=== PATIENT | male | born 1940 | race Caucasian/White ===

== ENCOUNTER 2017-04-17 16:07 | Inpatient (IN) | payer MEDICARE, OTHER ==
[~2017-04-17] VITALS: Ht 171.4 cm; Wt 68.5 kg
[~2017-04-17 16:07] MED LIST: FLAGYL500 MG PO
[2017-04-17 16:57] LABS: HEMOGLOBIN 11.3 gm/dl (14.0-17.5); RED BLOOD COUNT 4.21 M/UL (4.20-5.50); WHITE BLOOD COUNT 13.2 K/UL (4.5-11.0)
[2017-04-17 17:17] LABS: BUN/CREATININE RATIO 16 (0-10)
[2017-04-17] MEDS ORDERED: SIMVASTATIN10 MG PO (22:42)
[2017-04-17] MEDS ORDERED: DILANTIN 100 M100 MG PO (22:42)
[2017-04-17] MEDS ORDERED: OTC SLEEP AID PO (22:42)
[2017-04-18 03:19] LABS: HEMOGLOBIN 7.6 gm/dl (14.0-17.5)
[2017-04-18 15:36] LABS: HEMOGLOBIN 10.5 gm/dl (14.0-17.5)
[2017-04-19 06:20] LABS: HEMOGLOBIN 13.8 gm/dl (14.0-17.5); RED BLOOD COUNT 4.88 M/UL (4.20-5.50)
[2017-04-19 06:40] LABS: BUN/CREATININE RATIO 10 (0-10)
[2017-04-19] MEDS ORDERED: TYLENOL 325MG325 MG PO (10:21)
== END 2017-04-19 08:02 | disposition home or self-care (01) | DRG 378 ==
LOC: ER1 16:07 → ZEROF 19:07 → M/S 19:07
PROVIDERS: Emergency Medicine; Family Medicine; Internal Medicine Gastroenterology; ADMIT Family Medicine
PROC: 0DJD8ZZ Inspection of Lower Intestinal Tract, Via Natural or Artificial Opening Endoscopic (ICD-10-PCS; 2017-04-18)
PROC: 30233N1 Transfusion of Nonautologous Red Blood Cells into Peripheral Vein, Percutaneous Approach (ICD-10-PCS; 2017-04-18)
PROC: 30233N1 Transfusion of Nonautologous Red Blood Cells into Peripheral Vein, Percutaneous Approach (ICD-10-PCS; 2017-04-18)
PROC: 0DBK8ZX Excision of Ascending Colon, Via Natural or Artificial Opening Endoscopic, Diagnostic (ICD-10-PCS; principal; 2017-04-19 09:00)
DX: K57.31 Diverticulosis of large intestine without perforation or abscess with bleeding (principal); D62 Acute posthemorrhagic anemia; D12.2 Benign neoplasm of ascending colon; K64.8 Other hemorrhoids; G40.909 Epilepsy, unspecified, not intractable, without status epilepticus; E78.5 Hyperlipidemia, unspecified; K59.09 Other constipation; M95.2 Other acquired deformity of head; R51 Headache; G89.29 Other chronic pain; M54.9 Dorsalgia, unspecified; Z86.73 Personal history of transient ischemic attack (TIA), and cerebral infarction without residual deficits; Z85.46 Personal history of malignant neoplasm of prostate; Z92.3 Personal history of irradiation; Z98.2 Presence of cerebrospinal fluid drainage device; Z79.899 Other long term (current) drug therapy; Z88.6 Allergy status to analgesic agent; Z88.0 Allergy status to penicillin; Z98.890 Other specified postprocedural states; Z83.3 Family history of diabetes mellitus
CPT/HCPCS: 36415; 36430; 80048; 80053; 81001; 82150; 82272; 83605; 83690; 85014; 85018; 85025; 85027; 85610; 85730; 86850; 86900; 86901; 86920; 93005; 96361; 96374; 96375; 96376; 99284; J2405; J2550; J7030; J7040; J7050; P9016; Q9962

== ENCOUNTER 2017-04-22 07:26 | Inpatient (IN) | payer MEDICARE, OTHER ==
[~2017-04-22] VITALS: Ht 171.4 cm; Wt 73.7 kg
[~2017-04-22 07:26] MED LIST changes: +DILANTIN 100 M100 MG PO; +OTC SLEEP AID PO; +SIMVASTATIN10 MG PO; +TYLENOL 325MG325 MG PO
[2017-04-22 09:01] LABS: HEMOGLOBIN 8.7 gm/dl (14.0-17.5); RED BLOOD COUNT 3.15 M/UL (4.20-5.50); WHITE BLOOD COUNT 11.9 K/UL (4.5-11.0)
[2017-04-22 09:20] LABS: BUN/CREATININE RATIO 13 (0-10)
[2017-04-22 17:32] LABS: WHITE BLOOD COUNT 13.2 K/UL (4.5-11.0)
[2017-04-22 17:37] LABS: HEMOGLOBIN 11.1 gm/dl (14.0-17.5); RED BLOOD COUNT 4.04 M/UL (4.20-5.50)
[2017-04-23 04:50] LABS: BUN/CREATININE RATIO 10 (0-10)
[2017-04-23 11:07] LABS: HEMOGLOBIN 10.3 gm/dl (14.0-17.5); RED BLOOD COUNT 3.79 M/UL (4.20-5.50); WHITE BLOOD COUNT 13.3 K/UL (4.5-11.0)
[2017-04-23 16:43] LABS: HEMOGLOBIN 10.9 gm/dl (14.0-17.5)
[2017-04-24 04:32] LABS: HEMOGLOBIN 10.2 gm/dl (14.0-17.5); RED BLOOD COUNT 3.71 M/UL (4.20-5.50); WHITE BLOOD COUNT 12.9 K/UL (4.5-11.0)
[2017-04-24] MEDS ORDERED: PROTONIX40 MG PO (09:16)
== END 2017-04-24 12:00 | disposition home or self-care (01) | DRG 378 ==
LOC: ER1 07:26 → ZEROF 11:02 → PROG CARE 11:02
PROVIDERS: Internal Medicine Gastroenterology; Specialist/Technologist Athletic Trainer; ADMIT Family Medicine
PROC: 30233N1 Transfusion of Nonautologous Red Blood Cells into Peripheral Vein, Percutaneous Approach (ICD-10-PCS; 2017-04-22)
PROC: 0DJD8ZZ Inspection of Lower Intestinal Tract, Via Natural or Artificial Opening Endoscopic (ICD-10-PCS; principal; 2017-04-23 07:39)
PROC: 0DJ08ZZ Inspection of Upper Intestinal Tract, Via Natural or Artificial Opening Endoscopic (ICD-10-PCS; principal; 2017-04-23 07:39)
DX: K57.31 Diverticulosis of large intestine without perforation or abscess with bleeding (principal); D62 Acute posthemorrhagic anemia; G40.909 Epilepsy, unspecified, not intractable, without status epilepticus; R51 Headache; K29.60 Other gastritis without bleeding; E78.5 Hyperlipidemia, unspecified; K44.9 Diaphragmatic hernia without obstruction or gangrene; K22.2 Esophageal obstruction; K59.09 Other constipation; K64.8 Other hemorrhoids; Z85.46 Personal history of malignant neoplasm of prostate; Z92.21 Personal history of antineoplastic chemotherapy; Z86.010 Personal history of colon polyps; Z88.0 Allergy status to penicillin; Z79.899 Other long term (current) drug therapy; Z92.3 Personal history of irradiation
CPT/HCPCS: 36415; 36430; 80048; 80053; 80185; 82272; 82550; 82553; 83605; 83874; 84484; 85014; 85018; 85025; 85027; 85610; 85730; 86850; 86900; 86901; 86920; 96361; 96365; 96375; 96376; 99285; C9113; J2060; J2250; J2405; J3010; J7030; J7040; J7050; P9016

== ENCOUNTER → 2017-04-27 | Outpatient (CLI) | payer MEDICARE, OTHER ==
[~2017-04-27] MED LIST changes: +PROTONIX40 MG PO
[2017-04-27 08:06] LABS: HEMOGLOBIN 11.2 gm/dl (14.0-17.5); RED BLOOD COUNT 4.14 M/UL (4.20-5.50); WHITE BLOOD COUNT 9.4 K/UL (4.5-11.0)
== END ==
LOC: LAB 07:30
PROVIDERS: Surgery
DX: K57.31 Diverticulosis of large intestine without perforation or abscess with bleeding (principal); D62 Acute posthemorrhagic anemia
CPT/HCPCS: 36415; 85025

== ENCOUNTER → 2017-05-01 | Outpatient (CLI) | payer MEDICARE, OTHER ==
[2017-05-01 08:20] LABS: HEMOGLOBIN 11.5 gm/dl (14.0-17.5); RED BLOOD COUNT 4.27 M/UL (4.20-5.50); WHITE BLOOD COUNT 6.5 K/UL (4.5-11.0)
[2017-05-01 08:36] LABS: BUN/CREATININE RATIO 13 (0-10)
== END ==
LOC: LAB 07:32
PROVIDERS: Emergency Medicine
DX: D50.8 Other iron deficiency anemias (principal); R53.1 Weakness
CPT/HCPCS: 36415; 80048; 82728; 83540; 83550; 85027

== ENCOUNTER → 2021-04-14 | Outpatient (CLI) | payer MEDICARE ==
[~2021-04-14] MED LIST changes: +CYCLOBENZAPRINE10 MG PO
[2021-04-14 10:36] LABS: HEMOGLOBIN 15.1 gm/dl (14.0-17.5); RED BLOOD COUNT 4.7 M/UL (4.20-5.50)
[2021-04-14 10:46] LABS: BUN/CREATININE RATIO 18 (0-10)
[2021-04-16 13:11] LABS: CHOLESTEROL, TOTAL 137 mg/dL (100-199); HDL SIZE 9.6 nm (>=9.2); HDL-C 50 mg/dL (>39); HDL-P (TOTAL) 29.6 umol/L (>=30.5); LARGE HDL-P 6.5 umol/L (>=4.8); LARGE VLDL-P 1.4 nmol/L (<=2.7); LDL-C 72 mg/dL (0-99); LDL-P 964 nmol/L (<1000); LP-IR SCORE 31 (<=45); SMALL LDL-P 446 nmol/L (<=527); TRIGLYCERIDES 77 mg/dL (0-149); VLDL SIZE 44.6 nm (<=46.6)
== END ==
LOC: LAB 08:52
PROVIDERS: Emergency Medicine
DX: E78.2 Mixed hyperlipidemia (principal); D50.9 Iron deficiency anemia, unspecified; G40.89 Other seizures; D50.0 Iron deficiency anemia secondary to blood loss (chronic)
CPT/HCPCS: 36415; 80053; 80061; 80185; 83704; 85025

== ENCOUNTER → 2021-09-03 | Outpatient (CLI) | payer MEDICARE | LOC: LAB 12:17 | DX: Z12.5 Encounter for screening for malignant neoplasm of prostate (principal); G40.89 Other seizures | CPT/HCPCS: 36415; 80185; G0103 ==

== ENCOUNTER → 2022-06-20 | Outpatient (CLI) | payer MEDICARE ==
[2022-06-20 07:57] LABS: HEMOGLOBIN 14.8 gm/dl (14.0-17.5); RED BLOOD COUNT 4.66 M/UL (4.20-5.50)
[2022-06-20 09:04] LABS: BUN/CREATININE RATIO 18 (0-10)
[2022-06-21 15:09] LABS: CHOLESTEROL, TOTAL 143 mg/dL (100-199); HDL SIZE 9.6 nm (>=9.2); HDL-C 54 mg/dL (>39); HDL-P (TOTAL) 33.6 umol/L (>=30.5); LARGE HDL-P 8.3 umol/L (>=4.8); LARGE VLDL-P 2.1 nmol/L (<=2.7); LDL SIZE 20.8 nm (>20.5); LDL SIZE 20.8 nm (>=20.8); LDL-C 76 mg/dL (0-99); LDL-P 925 nmol/L (<1000); LP-IR SCORE 36 (<=45); SMALL LDL-P 490 nmol/L (<=527); TRIGLYCERIDES 64 mg/dL (0-149); VLDL SIZE 48.1 nm (<=46.6)
== END ==
LOC: LAB 07:09
PROVIDERS: Emergency Medicine
DX: E78.2 Mixed hyperlipidemia (principal); M15.8 Other polyosteoarthritis
CPT/HCPCS: 36415; 80053; 80061; 80185; 83704; 84443; 84550; 85025